=== PATIENT | male | born 1945 | race Hispanic/Latino ===

== ENCOUNTER 2024-07-15 10:05 | Emergency (ER) | payer OTHER ==
[~2024-07-15] VITALS: Ht 185.4 cm; Wt 99.8 kg
--- NOTE | 2024-07-15 10:23 | ERN ---
ED Note History of Present Illness Stated Complaint: FALL KNEE PAIN Chief Complaint: Knee Injury/Swelling Time Seen by MD: 10:06 Dictation: PATIENT IS A 78-YEAR-OLD MALE HERE WITH LEFT ANTERIOR KNEE PAIN STATUS POST A SAME LEVEL SLIP FALL THIS MORNING. HE STATES HE IS ON NO BLOOD THINNERS DID NOT HIT HIS HEAD NO TRAUMA ALERT CRITERIA. HE STATES I MIGHT HAVE DISLOCATED MY KNEECAP. UNABLE TO EXTEND LEFT LEG COMPLETELY. DISTAL NEUROVASCULAR CMS INTACT Allergies: Coded Allergies: No Known Drug Allergies (Unverified Allergy, Unknown, 07/15/24) Past Medical History RN Note Reviewed/Agreed w/PFSH: Yes Review of System Dictation CONSTITUTIONAL: NEGATIVE EXCEPT FOR HPI HEAD/FACE: NEGATIVE EXCEPT FOR HPI EENT: NEGATIVE EXCEPT FOR HPI RESPIRATORY: NEGATIVE EXCEPT FOR HPI GASTROINTESTINAL/ABDOMINAL: NEGATIVE EXCEPT FOR HPI GENITOURINARY: NEGATIVE EXCEPT FOR HPI MUSCULOSKELETAL: NEGATIVE EXCEPT FOR HPI LEFT KNEE PAIN INTEGUMENTARY: NEGATIVE EXCEPT FOR HPI NEUROLOGICAL/PSYCH: NEGATIVE EXCEPT FOR HPI HEMATOLOGIC/LYMPHATIC: NEGATIVE EXCEPT FOR HPI ALL SYSTEMS NEGATIVE, EXCEPT NOTED ABOVE. 13 POINT REVIEW OF SYSTEMS ASSESSED AND ALL NEGATIVE EXCEPT FOR ABOVE. Physical Exam Dictation VITAL SIGNS REVIEWED GENERAL APPEARANCE: ALERT, ORIENTED X 3, MILD ACUTE DISTRESS, WELL DEVELOPED, NOURISHED. HEAD AND FACE: NON-TRAUMATIC. EYES: PERRL, PINK CONJUNCTIVAS, EYELID NO TRAUMA, ANTERIOR CHAMBER WITH ARCUS SENILIS. EARS: PINNAS INTACT AND NO SIGNS OF TRAUMA OR ERYTHEMA EAR CANALS CLEAR AND NO DISCHARGE TM NO ERYTHEMA NOSE: NO DISCHARGE, NO BLEEDING. OROPHARYNX: MOUTH NORMAL, TONGUE PINK, PHARYNX CLEAR,NO ERYTHEMA, TONSILS NO EXUDATES, NO ABSCESSES NOTED, MUCOUS MEMBRANE MOIST NECK: SUPPLE, NON-TENDER, NO THYROMEGALY, NO MASSES, NO JVD, NO BRUITS BREAST:DEFERRED CHEST:NO TENDERNESS, NO CREPITUS, NO PARADOXICAL MOVEMENT, NO RETRACTIONS LUNGS:CLEAR, WELL-VENTILATED, SYMMETRIC, NO RALES, NO WHEEZING, NO RHONCHI, NO STRIDOR, GOOD BREATH SOUNDS BILATERALLY HEART: REGULAR RATE, REGULAR RHYTHM, NO MURMUR, NO GALLOPS VASCULAR: NO PERIPHERAL EDEMA, ABDOMEN: SOFT, POSITIVE BOWEL SOUNDS, NONDISTENDED, NO GUARDING, NONTENDER, NO REBOUND, NO MASSES NO HEPATOMEGALY, NO SPLENOMEGALY, NO COLLIER'S SIGN, NO HERNIAS. RECTAL: DEFERRED GENITAL: DEFERRED NEUROLOGICAL: NORMAL SPEECH, MOTOR FUNCTION INTACT, SENSORY FUNCTION INTACT MUSCULOSKELETAL: NECK NONTENDER, FULL RANGE OF MOTION, BACK NONTENDER, FULL RANGE OF MOTION, EXTREMITIES: LEFT ANTERIOR KNEE TENDERNESS WITH QUESTIONABLE LATERAL DISLOCATION PATELLA. SKIN: COLOR PINK, DRY, NO TURGOR, NO RASH, NO LACERATIONS, NO ABRASIONS, NO CONTUSIONS. LYMPHATIC: DEFERRED Results (Laboratory/Radiology) Laboratory/Radiology 1128 LEFT KNEE X-RAY DEMONSTRATES PATELLAR FRACTURE Labs Reviewed?: Yes ED Course ED Course Orders Procedure Category Date Status Time Knee 3vws Lt RAD 07/15/24 Resulted 10:20 Knee Immobilizer CALI 07/15/24 Transmitted 11:25 Crutches W/Training CPOE 07/15/24 Transmitted (Er) 11:25 Acetaminophen With PHA 07/15/24 Transmitted Codeine (Tylenol-Code 11:30 1130 KNEE IMMOBILIZER PLACED BY TECH TO LEFT KNEE DISTAL NEUROVASCULAR CMS INTACT POST PLACEMENT Medical Decision Making MDM MEDICAL DECISION-MAKING BASED ON PAIN MANAGEMENT AND X-RAY OF LEFT KNEE STATUS POST FALL. PATIENT HAS A PATELLAR FRACTURE, KNEE IMMOBILIZER PLACED DISTAL NEUROVASCULAR CMS INTACT DISTALLY REFERRED TO DR. KELLIE BECKER DX & DISP Disposition: Discharge Departure Impression: Primary Impression: Fracture of left patella Additional Impression: Fall Condition: Stable Scripts Ibuprofen (Ibuprofen 800 mg Tab) 800 Mg Tab 800 MG PO Q8H PRN for fever or pain, #30 TAB 0 Refills Prov: EVER BUTT ONION TIER 07/15/24 Additional Instructions: FOLLOW-UP WITH PRIMARY CARE PROVIDER IN 1 TO 2 DAYS. TAKE MEDICATIONS DIRECTED HERE IN THE EMERGENCY ROOM. OKAY TO CONTINUE HOME MEDICATIONS UNLESS OTHERWISE DISCUSSED DURING YOUR VISIT IN THE EMERGENCY ROOM TODAY. RETURN TO YOUR NEAREST EMERGENCY ROOM IF SYMPTOMS WORSEN OR IF THERE IS NO IMPROVEMENT. CALL 911 IF YOU NEED IMMEDIATE ASSISTANCE. TAKE TYLENOL OR MOTRIN XDNA-BSJ-VEOGSHN NEEDED AND IF NO CONTRAINDICATIONS ARE PRESENT. INCREASE ORAL HYDRATION. A WOUND CULTURE OR URINE CULTURE WAS ORDERED HERE IN THE EMERGENCY ROOM DEPARTMENT PLEASE FOLLOW-UP WITH PRIMARY CARE PROVIDER AND ADVISE THEM TO GET REPEAT PORTS FROM OUR FACILITY. IF YOU HAD ANY FIOR WRAP/SPLINTS THAT WERE APPLIED HERE, PLEASE DO NOT REMOVE THEM UNTIL YOU SEE YOUR PRIMARY CARE OR SPECIALTY. KNEE IMMOBILIZER/CRUTCHES/NO WEIGHT-BEARING UNTIL CLEARED BY ORTHOPEDIC SURGEON, CALL FOR AN APPOINTMENT TODAY. COOL COMPRESSES TO PAIN THREE TO 4 TIMES A DAY. Referrals: NONE (PCP) KELLIE BECKER MD Time of Disposition: 11:28 I have reviewed the case, and I agree with, Diagnosis and Plan EVER BUTT NP Jul 15, 2024 10:23
--- NOTE | 2024-07-15 11:17 | HMCIMG ---
KNEE 3VWS LT HISTORY: Knee pain COMPARISON: None TECHNIQUE: 3 images of left knee were obtained. FINDINGS: Avulsion fracture displacement is seen involving the patella. Comminuted fractures are seen involving the inferior aspect of the patella. Adjacent soft tissue swelling is seen. Degenerative changes are seen. IMPRESSION: 1. Findings as described above.
[2024-07-15] MEDS ORDERED: IBUP-2077 PO (11:30)
[2024-07-15 11:41] VITALS: BP 158/85; PULSE 73; RESP 20; TEMP 98.4; O2SAT 99
[2024-07-15] MEDS: acetaMINOPHEN WITH coDEINE 1 TAB TAB PO ONE (11:49)
--- NOTE | 2024-07-15 11:57 | NUR ---
KNEE IMMOBILIZER APPLIED TO LT KNEE , PT TOLERTED WELL
== END 2024-07-15 12:00 | disposition home or self-care (01) ==
LOC: EDH 10:05
DX: S82.042A Displaced comminuted fracture of left patella, initial encounter for closed fracture (principal); W01.0XXA Fall on same level from slipping, tripping and stumbling without subsequent striking against object, initial encounter; Y93.89 Activity, other specified; Y92.89 Other specified places as the place of occurrence of the external cause; Y99.8 Other external cause status
CPT/HCPCS: 29505; 73562; 99283

== ENCOUNTER 2024-07-26 07:53 | Day surgery (SDC) | payer OTHER ==
[2024-07-25 10:39] LABS: BASOPHILS # (AUTO) 0.07 K/uL (0.00-0.20); BASOPHILS % (AUTO) 0.5 % (0.0-5.0); EOSINOPHILS # (AUTO) 0.22 K/uL (0.00-0.70); EOSINOPHILS % (AUTO) 1.6 % (0.0-8.0); HEMATOCRIT 40.8 % (42-54); IMMATURE GRANULOCYTE ABSOLUTE 0.08 K/uL (0-1); LYMPHOCYTES # (AUTO) 1.2 K/uL (1.0-4.8); MEAN CORPUSCULAR HEMOGLOBIN 30.7 pg (27.0-33.0); MEAN CORPUSCULAR HGB CONC 33.8 g/dL (32.0-36.0); MEAN CORPUSCULAR VOLUME 90.7 fL (79-99); MONOCYTES # (AUTO) 1.1 K/uL (0.1-1.0); MONOCYTES % (AUTO) 7.8 % (3.0-13.0); NEUTROPHILS # (AUTO) 10.8 K/uL (1.8-7.7); NEUTROPHILS % (AUTO) 80.5 % (40.0-77.0); PLATELET COUNT (AUTO) 396 K/uL (130-400); RED CELL DISTRIBUTION WIDTH 13.3 % (11.0-15.5); WHITE BLOOD COUNT (AUTO) 13.4 K/uL (4.8-10.8)
[2024-07-25 10:51] LABS: INR 0.97 (0.85-1.15); PROTHROMBIN TIME 10.9 SEC (9.6-11.6)
[2024-07-25 10:53] LABS: PARTIAL THROMBOPLASTIN TIME 26.4 SEC (26.3-35.5)
[2024-07-25 11:12] VITALS: BP 107/70; PULSE 104; RESP 16; TEMP 97.9
[2024-07-25 11:27] LABS: CREATININE 1.6 mg/dL (0.5-1.3); POTASSIUM 4.9 mmol/L (3.5-5.1)
--- NOTE | 2024-07-25 13:36 | NUR ---
REPORT REPORTED CRP/WBC TO DR BECKER. OK TO PROCEED
[2024-07-26] VITALS (16 sets, daily range): BP systolic 111–151; BP diastolic 56–80; PULSE 66–90; RESP 14–18; TEMP 97.1–97.7
[~2024-07-26] VITALS: Ht 185.4 cm; Wt 103.0 kg
[~2024-07-26 07:53] MED LIST: ACET-2743 PO; AMLO-258 PO; FOLI0.8T22 PO; METO50TA18 PO; ROSU10TA72 PO; SODI10PO2 PO
[2024-07-26] MEDS ORDERED: ondanSETRON 4MG INJ ONE (08:07)
[2024-07-26] MEDS ORDERED: LIDOCAINE PF 100MG/5ML (2%) SYRINGE 5ML ONE (08:07)
[2024-07-26] MEDS ORDERED: dexaMETHasone SOD PHOSPHATE 10MG/ML 1ML VIAL ONE (08:07)
[2024-07-26] MEDS ORDERED: SUCCINYLCHOLINE CHLORIDE 20 MG/ML 10 ML VIAL ONE (08:07)
[2024-07-26] MEDS ORDERED: GLYCOPYRROLATE 0.2 MG/ML 5 ML VIAL ONE (08:08)
[2024-07-26] MEDS ORDERED: NEOSTIGMINE METHYLSULFATE 1MG/ML IV ONE (08:08)
[2024-07-26] MEDS ORDERED: rocuRONium bROMide 10MG/1ML 5ML VL ONE (08:08)
[2024-07-26] MEDS ORDERED: FENTanyl CITRate PF 50 MCG/1 ML 2ML VIAL ONE ×2 (08:08→12:27)
[2024-07-26] MEDS ORDERED: proPOFol 10 MG/ML 20ML VIAL IV ONE (08:08)
[2024-07-26] MEDS ORDERED: MIDAZOLAM HCL 1 MG/ML 2ML VIAL ONE (08:09)
[2024-07-26] MEDS ORDERED: ketaMINE 50MG/ML SYRINGE 50 MG/ML DISP.SYRIN ONE (08:11)
[2024-07-26] MEDS ORDERED: ALBUMIN (HUMAN) 5% 250 ML IV ONE (08:12)
[2024-07-26] MEDS: LACTATED RINGERS 1000ML 1,000 ML IV ONE (08:45)
[2024-07-26] MEDS: ceFAZolin SODIUM 2 GM VIAL ONE (08:45)
[2024-07-26] MEDS: ceFAZolin SODIUM 2 GM VIAL IVPB ONE (10:17)
[2024-07-26] MEDS ORDERED: HYDR-4060 PO (10:30)
[2024-07-26] MEDS ORDERED: TRANEXAMIC ACID 1000MG/10ML ONE (10:31)
[2024-07-26] MEDS ORDERED: LIDOCAINE HCL-MPF 2% 10ML AMP IJ ONE (12:59)
[2024-07-26] MEDS: MEPERIDINE-PF 25 MG/ML SYG ONE (13:34)
--- NOTE | 2024-07-26 14:34 | HMCIMG ---
KNEE/PATELLA 1-2VWS LT REASON: ORIF LT Patella FX TECHNIQUE: 6 surgical spot views were obtained. These document operative reduction and internal fixation patellar fracture. Fluoroscopy time was 0.3 minutes. IMPRESSION: 1. Documentation of ORIF procedure left patella
--- NOTE | 2024-07-26 14:49 | NUR ---
Full and complete Discharge Instructions given to Patient and Family both verbally and in writing.. All questions answered. Voiced understanding to Surgical precautions and Follow Up. Neurovascular status intact. PIV removed with catheter tip intact. Denies c/o pain or discomfort. Leg immobilzer in place. Ambulated to Bathroom where voided large amount. D/C'd W/C to POV with Family to Home.
--- NOTE | 2024-07-26 15:13 | OP ---
Operative Note: DATE OF PROCEDURE: 07/26/24 SURGEON: KELLIE BECKER MD CORD CUTTER: Alissa Rosales ANESTHESIA: General and femoral nerve block ANESTHESIOLOGIST/SECTION WEAVER: Walter Florentino CRNA PREOPERATIVE DIAGNOSIS: Displaced comminuted left patella fracture POSTOPERATIVE DIAGNOSIS: Displaced comminuted left patella fracture PROCEDURE: Open reduction internal fixation left patella fracture ESTIMATED BLOOD LOSS: 20 cc INDICATIONS: 78-year-old male status post ground level fall with injury of the left knee. Patient was noted to have left patella fracture in the emergency room placed into a knee immobilizer. He presented to our clinic for follow up. We reviewed the x-rays and discussed the comminuted nature of the distal pole. We discussed operative fixation versus partial patellectomy and tendon advancement. After discussion of the risks, benefits, and alternatives, the patient voluntarily agreed to undergo the aforementioned procedure. DESCRIPTION OF PROCEDURE: Patient was properly identified in the preoperative holding area. Surgical site marking was verified and surgery consent reviewed. The patient was then taken to the operating room and placed in supine position on the OR table. After induction of general anesthesia, preoperative antibiotics were given, all bony prominences were well-padded, and a well padded tourniquet was applied but not inflated at this time. The left lower extremity was then prepped and draped in usual sterile fashion. Surgical timeout was done verifying correct surgery, side, site, and location to be performed. We then began the procedure by elevating the limb for exsanguination and inflating our tourniquet to 300 mmHg. We then reopened the made a 15 cm anterior midline incision using a 10 blade. Hemostasis was then achieved using Bovie electrocautery. We then came sharply through the swollen bursal tissue and the peritenon. We identified the patellar tendon and the location of the patella fracture. Hemarthrosis was evacuated using suction. The fracture fragments were distracted and debrided of interposed soft tissue and hematoma using curettes and rongeur. We noted there to be a large distal, lateral fragment. We evaluated the amount of bone remaining in the distal pole medially and found this to be poor. We then obtained a reduction of the lateral fragment to the proximal fragment and held it using a large Chau clamp. This was verified under 2 view fluoroscopy. We then reduced the smaller medial distal fracture fragments to the proximal piece and held this in place using 5. Ethibond through the periosteum. We ran into Krakw sutures using a #5 Ethibond in the patellar tendon up and down the medial and lateral sides. We placed drill holes longitudinally in the patella under fluoroscopic guidance and passed 1 of each strand of our sutures through each of these tunnels using a [employer] suture passer. The middle drill tunnel exited the comminution only traversing the proximal fragment. Through this hole, we passed one limb of each Krackow suture. The most medial limb of Ethibond was passed using a free needle through the bone and periosteum of the most medial portion of the proximal fragment. We tied the Ethibond sutures together over the top of the patella. We then obtained final AP and lateral fluoroscopic films. At this point we thoroughly irrigated out the wound with normal saline. The retinaculum was repaired using #5 Ethibond, as well as the periosteum at the fracture site that appeared avulsed. #1 Vicryl was used to repair the peritenon. 2-0 Vicryl in the subcutaneous tissues and 3-0 monocryl in the skin. Dermabond was applied over the incision. Sterile soft dressing was then applied and our tourniquet was deflated. Patient was placed into a knee immobilizer in extension. He was then awakened from anesthesia and taken to recovery room in stable condition. KELLIE BECKER MD Jul 26, 2024 15:13
== END 2024-07-26 14:45 | disposition home or self-care (01) ==
LOC: DAH 07:53
PROVIDERS: ATTEND Student in an Organized Health Care Education/Training Program
DX: S82.042A Displaced comminuted fracture of left patella, initial encounter for closed fracture (principal); X58.XXXA Exposure to other specified factors, initial encounter; Y93.89 Activity, other specified; Y92.89 Other specified places as the place of occurrence of the external cause; Y99.8 Other external cause status; I10 Essential (primary) hypertension; I25.10 Atherosclerotic heart disease of native coronary artery without angina pectoris; E78.5 Hyperlipidemia, unspecified; Z79.01 Long term (current) use of anticoagulants; Z90.49 Acquired absence of other specified parts of digestive tract; Z83.3 Family history of diabetes mellitus; Z82.49 Family history of ischemic heart disease and other diseases of the circulatory system; Z79.899 Other long term (current) drug therapy; Z98.890 Other specified postprocedural states
CPT/HCPCS: 27524; 64447; 80048; 85025; 85610; 85730; 84134; 86140; 36415; 73560; A4223 ×2; A4663; A4649 ×2; P9045; J7120; J3010 ×2; J3490 ×6; J1100; J0330; J2003; J2250; J2704; J2405; J2710; J2175; J0690 ×2; A4930; A6255; A4215; A4213; A4222; A4221; A4216